=== PATIENT | female | born 1955 | race Caucasian/White ===

== ENCOUNTER 2016-12-30 11:52 | Emergency (ER) | payer OTHER ==
[~2016-12-30] VITALS: Ht 162.6 cm; Wt 97.5 kg
--- NOTE | 2016-12-30 12:08 | ED DYSPNEA/ASTHMA COMPLAINT ---
History of Present Illness General Chief Complaint: Dyspnea (COPD, CHF, Other) Stated Complaint: SOB Source: patient, old records Exam Limitations: no limitations Vital Signs & Intake/Output Vital Signs & Intake/Output Vital Signs Date Time Temp Pulse Resp B/P B/P Pulse O2 O2 Flow FiO2 Mean Ox Delivery Rate 12/30 1341 72 22 174/74 97 Room Air 12/30 1305 96 12/30 1205 96.6 66 16 191/95 94 Room Air Allergies Coded Allergies: Sulfa (Sulfonamide Antibiotics) (Severe, RASH 12/30/16) adhesive tape (Severe, RASH 12/30/16) Reconcile Medications Albuterol Sulfate (Proair Hfa) 90 MCG HFA.AER.AD 2 PUF INH Q4-6 PRN PRN WHEEZING Hydrochlorothiazide 25 MG TABLET 1 TAB PO DAILY WATER PILL (Reported) Methylprednisolone. (Medrol) 4 MG TAB.DS.PK 1 DP PO AD REACTIVE AIRWAY 6 on day 1 then reduce by one tablet daily until gone Minocycline HCl 100 MG CAPSULE 1 CAP PO QPM ANTIBIOTIC, INFECTION (Reported) Mycophenolate Mofetil 500 MG TABLET 1 TAB PO BID TRANSPLANT (Reported) Triage Note: 61 Y/O FEMALE SENT FROM DR SCHMIDT'S OFFICE FOR EVAL OF SOB X FEW WEEKS, WORSENING OVER LAST FEW DAYS. PT STATES SHE WAS EVAL'D AND HAD BLOODWORK DRAWN, "I AM VERY ANEMIC". PT PALE/SALLOW IN COLOR. DENIES PAIN. C/O SOB WORSE WITH EXERTION. HX AUTOIMMUNE DISEASE, ON IMMUNOSUPPRESANTS. EKG IN PROGRESS Triage Nurses Notes Reviewed? yes Onset: Gradual Duration: week(s): (1), constant, waxing and waning Timing: recent history Severity: moderate Activities at Onset: activity Prior Episodes/Possible Cause: occasional episodes Modifying Factors: Improves With: rest. Worsens With: movement. 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 She denies fevers chills. She reports to congestion. No sore throat no chest pain palpitations dizziness or lightheadedness. she is a former smoker. No history of asthma or COPD symptoms are worse with movement and better at rest no leg swelling no recent travel or immobility (HELIO KUMAR) Past History Travel History Traveled to [place] past 21 day No Medical History Any Pertinent Medical History? see below for history Neurological: NONE EENT: NONE Cardiovascular: hypertension Respiratory: NONE Gastrointestinal: NONE Hepatic: NONE Renal: NONE Musculoskeletal: NONE Psychiatric: NONE Endocrine: NONE Blood Disorders: AUTOIMMUNE DISORDER Cancer(s): NONE [employer] POLICE OFFICER/Reproductive: NONE Surgical History Surgical History: none Psychosocial History What is your primary language Belarusian Tobacco Use: Current Not Daily Family History Hx Contributory? No (HELIO KUMAR) Review of Systems Review of Systems Constitutional: Reports: see HPI. All Other Systems: Reviewed and Negative Comments Review of systems: See HPI, All other systems negative. Constitutional, no chills no fever, no malaise HEENT: No visual changes no sore throat congestion, no ear pain Cardiovascular: No chest pain , no palpitation , no orthopnea Skin: no rashes, no change in skin Respiratory: dyspnea cough no sputum no hemoptysis GI: No nausea no vomiting, no diarrhea, no bloating/constipation : No dysuria No hematuria, no frequency, no discharge Muscle skeletal: No joint pain, no joint swelling, no back pain, no neck pain, Neurologic: No numbness no confusion, no headache Psych: No stress no depression,. Heme/endocrine: No bruising no bleeding Immunology: No lymphadenopathy (HELIO KUMAR) Physical Exam Physical Exam General Appearance: well developed/nourished, alert, awake Respiratory: normal breath sounds, wheezing Comments: Well-developed well-nourished person in no acute distress HEENT: Normal EENT exam; PERRL, EOMI, HEAD is atraumatic. moist mucous membranes. Neck: Supple, no lymphadenopathy, normal range of motion Back: Nontender, no CVA tenderness. Full range of motion Cardiovascular: Regular rate and rhythms no murmurs rubs Respiratory: Chest nontender.There were no bony deformities, no asymmetry. No respiratory distress. Patient speaking in full complete sentences. Wheezes no rhonchi no rales Abdomen: Soft, nontender nondistended, no appreciable organomegaly. Normal bowel sounds. No rebound/guarding, Extremity: No edema, full range of motion of extremities Neuro: Alert oriented x3, motor sensory normal, There were no obvious focal neurologic abnormalities. Skin: No appreciable rash on exposed skin, skin is warm and dry. Psych: Mood and affect is normal, memory and judgment is normal. Core Measures ACS in differential dx? Yes Severe Sepsis Present: No Septic Shock Present: No (LISS SUMMERS,HELIO) Progress Differential Diagnosis: asthma, AMI, bronchitis, costochondritis, CHF, COPD, musculoskeletal pain, pericarditis, pulmonary embolism, pneumonia, unstable angina Plan of Care: Orders Procedure Date/time Status AEROSOL (GEN) 12/30 1314 Complete TROPONIN LEVEL 12/30 1208 Complete PROTHROMBIN TIME 12/30 1208 Complete COMPREHENSIVE METABOLIC PANEL 12/30 1208 Complete CBC WITHOUT DIFFERENTIAL 12/30 1208 Complete B-TYPE NATRIURETIC PEP (BNP) 12/30 1208 Complete EKG 12/30 1155 Active Current Medications Sig/Zenon Start time Last Medication Dose Stop Time Status Admin Ipratropium [place] 2.5 ML ONCE ONE 12/30 1215 CAN (Atrovent) 12/30 1216 Laboratory Tests 12/30/16 1215: Anion Gap 9, Estimated GFR > 60, BUN/Creatinine Ratio 30.0 H, Glucose 98, Calcium 8.9, Total Bilirubin 0.6, AST 22, ALT 33, Alkaline Phosphatase 160 H, Troponin I < 0.01, Acu-A-Talcxcrdeiy Pept 140 H, Total Protein 7.5, Albumin 4.1 , Globulin 3.4, Albumin/Globulin Ratio 1.2, PT 11.3, INR 1.08, CBC w Diff MAN DIFF ORDERED, RBC 5.01, MCV 65.8 L, MCH 20.1 L, RDW 21.2 H, MPV 8.0, Segmented Neutrophils 79 H, Lymphocytes 14 L, Monocytes 5, Eosinophils 1, Basophils 1, Platelet Estimate ADEQUATE, Polychromasia 1+, Hypochromic- Microcytic 2+, Anisocytosis 1+, Microcytic Cells 2+, PUBS MCHC 30.6 L DuoNeb Solu-Medrol 125 IV ordered chest x-ray labs ordered old records reviewed patient resting in no apparent distress reports feeling improved lying on stretcher' On repeat evaluation patient states that she can be discharged home she feels well after DuoNeb I discussed with the patient at length all of their results patient was ambulatory here in the ER oxygen saturation 97-98% feeling well. I had an extensive conversation regarding need for close follow up with their primary care physician this week as well as return precautions. I answered all of their questions, they feel comfortable with the plan and follow-up care. I discussed the medications that they will receive with the patient. I gave them signs and symptoms that could indicate an adverse reaction. I have advised them to limit their activities until they can see how they respond to the medication. (HELIO KUMAR) Diagnostic Imaging: Viewed by Me: Radiology Read. Discussed w/RAD: Radiology Read. Radiology Impression: PATIENT: WADE BOYD PRESENT AGE: 61 PATIENT ACCOUNT NO: [id number] : 53 LOCATION: [facility] ORDERING PHYSICIAN: HELIO SUMMERS SERVICE DATE: 12/30/16 EXAM TYPE: RAD - XRY-CHEST XRAY, PA AND LATERAL EXAMINATION: XR CHEST CLINICAL INFORMATION: Dyspnea and cough. COMPARISON: Chest 10/26/2006. TECHNIQUE: 2 views of the chest were obtained. FINDINGS: Both lungs are fairly well-expanded and clear. The heart size is enlarged. Pulmonary vascularity is normal. No gross bony abnormality seen. IMPRESSION: Cardiomegaly. No acute process seen in chest. DICTATED BY: MARISSA YOO MD DATE/TIME DICTATED:12/30/161323 TURBINE TECHNICIAN :ERIKA DATE/TIME TRANSCRIBED:12/30/161323 CONFIDENTIAL, DO NOT COPY WITHOUT APPROPRIATE AUTHORIZATION. <Electronically signed in Other Vendor System> SIGNED BY: MARISSA YOO MD 12/30/161328 Initial ED EKG: NSR AT 60, NO ACUTE ST SEG CHANGES, NORMAL AXIS Prior EKG: unchanged (10/2006) (HELIO KUMAR) Departure Departure Time of Disposition: 1341 Disposition: HOME OR SELF CARE Condition: Stable Clinical Impression Primary Impression: Reactive airway disease Referrals: KATHARINE SCHMIDT DO (PCP/Family) Additional Instructions: Follow-up with your primary care physician this week for follow-up evaluation. Pro-air inhaler as discussed Medrol Dosepak as discussed this prescriptions was sent to [facility]. Return to ER anytime sooner with any concerns Departure Forms: Customer Survey General Discharge Information Prescriptions: Current Visit Scripts Albuterol Sulfate (Proair Hfa) 2 PUF INH Q4-6 PRN PRN WHEEZING #1 INHAL Methylprednisolone. (Medrol) 1 DP PO AD #1 DP 6 on day 1 then reduce by one tablet daily until gone (HELIO KUMAR) PA/[facility] TECH Co-Sign Statement Statement: ED Attending supervision documentation- [] I saw and evaluated the patient. I have also reviewed all the pertinent lab results and diagnostic results. I agree with the findings and the plan of care as documented in the PA's/[facility] TECH's documentation. [x] I have reviewed the ED Record and agree with the PA's/[facility] TECH's documentation. [] Additions or exceptions (if any) to the PAs/[facility] TECH's note and plan are summarized below: [] (HAIDER JOHNSON DO) Critical Care Note Critical Care Note Critical Care Time: non-applicable (HELIO KUMAR)
[2016-12-30 12:21] LABS: MEAN CORPUSCULAR HGB 20.1 PG (27.0-31.0); MEAN CORPUSCULAR HGB CONC 30.6 G/DL (33.0-37.0); MEAN CORPUSCULAR VOLUME 65.8 FL (81.0-99.0); PLATELET COUNT 294 /CUMM (130-400); RBC DISTRIBUTION WIDTH 21.2 % (11.5-14.5); RED BLOOD CELL CT 5.01 /CUMM (4.20-5.40); WHITE BLOOD CELL COUNT 5.8 /CUMM (4.8-10.8)
[2016-12-30] MEDS ORDERED: MINOCYCLINE HC100 M1 PO (12:27)
[2016-12-30] MEDS ORDERED: MYCOPHENOLATE500 M1 PO (12:27)
[2016-12-30] MEDS ORDERED: HYDROCHLOROTHIA25 M1 PO (12:28)
[2016-12-30 12:35] LABS: PT 11.3 SEC (9.4-12.5)
--- NOTE | 2016-12-30 13:29 | RADIOLOGY REPORT ---
EXAMINATION: XR CHEST CLINICAL INFORMATION: Dyspnea and cough. COMPARISON: Chest 10/26/2006. TECHNIQUE: 2 views of the chest were obtained. FINDINGS: Both lungs are fairly well-expanded and clear. The heart size is enlarged. Pulmonary vascularity is normal. No gross bony abnormality seen. IMPRESSION: Cardiomegaly. No acute process seen in chest.
[2016-12-30 13:41] VITALS: BP 174/74
[2016-12-30] MEDS ORDERED: MEDROL4 M2 PO (13:42)
[2016-12-30] MEDS ORDERED: PROAIR HFA8.5 GM INH (13:42)
== END 2016-12-30 13:51 ==
LOC: ERH 11:52
PROVIDERS: Emergency Medicine
DX: J45.909 Unspecified asthma, uncomplicated (principal); Z87.891 Personal history of nicotine dependence
CPT/HCPCS: 1263; 93005; 93010; 96374; J2930